=== PATIENT | male | born 1995 | race Caucasian/White ===

== ENCOUNTER 2016-06-22 12:42 | Emergency (ER) | payer BC ==
[~2016-06-22] VITALS: Ht 170.2 cm; Wt 58.5 kg
[~2016-06-22 12:42] MED LIST: CEPH500T PO; NO ROUTINE MEDS
[2016-06-22 12:45] VITALS: Ht 170.2 cm; Wt 58.5 kg
[2016-06-22] MEDS ORDERED: OXYC1TAB13 PO (13:06)
--- NOTE | 2016-06-22 13:07 | NUR ---
RADIOLOGY PT TO RADIOLOGY PER WC
--- NOTE | 2016-06-22 13:12 | NUR ---
RADIOLOGY PT FROM RADIOLOGY PER WC
--- NOTE | 2016-06-22 13:15 | NUR ---
COMFORT ICE PACK GIVEN FOR COMFORT
--- NOTE | 2016-06-22 13:42 | NUR ---
CONSULT ORTHO CONSULTED PER DR MILLER
--- NOTE | 2016-06-22 13:48 | NUR ---
RADIOLOGY RADIOLOGY NOTIFIED OF CT ORDERS
--- NOTE | 2016-06-22 13:50 | NUR ---
RADIOLOGY PT TO RADIOLOGY PER WC FOR CT
--- NOTE | 2016-06-22 13:58 | NUR ---
RADIOLOGY PT FROM RADIOLOGY PER CART
--- NOTE | 2016-06-22 14:06 | ERPDOC ---
Departure Disposition Decision Date: Jun 22, 2016 Disposition Decision Time: 14:45 Disposition: 01 DISCHARGED HOME, SELF-CARE Impression Impression Impression: Primary Impression: Wrist fracture, closed Encounter type: initial encounter Laterality: right Qualified Codes: S62.101A - Fracture of unspecified carpal bone, right wrist, initial encounter for closed fracture Severity: Mild Condition: Improved Seen By: Physician only Referrals: [facility] 1 Day Patient Instructions: Wrist Fracture in Adults (ED) Problems/Meds/Labs Reviewed?: Yes Medications reviewed and manag: Yes Follow up care ordered?: Yes Mental Status: Alert, Oriented Scripts Oxycodone HCl/Acetaminophen (Percocet 5-325 mg Tablet) 5-325 Tablet 1 TAB PO Q4HR Y for PAIN for 3 Days, #18 TAB 0 Refills Prov: CHRISTIANNE MILLER DO 06/22/16 HPI - Upper Extremity General Chief Complaint: Upper Extremity Injury Stated Complaint: R WRIST INJ Time Seen by MD: 12:43 Source: patient Exam Limitations: no limitations HPI - Upper Extremity Initial Comments 20-year-old male presents to the emergency department with the chief complaint of a right wrist injury. Patient hit his right wrist against a wooden lawn- chair earlier today prior to arrival to the emergency department. Patient notes a moderate dull aching sensation in his right wrist diffusely. He notes that the pain improves with a Percocet tablet that he took prior to arrival to the emergency department. Pain increases with movement and direct palpation of the affected area. No radiation of pain. Patient was at home when his symptoms began. Symptoms have been persistent in nature since onset. He denies any other complaints or associated symptoms. No other injuries. Patient was at home when the incident occurred. Occurred At: home Onset/Timing: Rapid Allergies: Coded Allergies: No Known Allergies (Unverified , 06/22/16) Past History Past Medical History Pt denies signifigant PMH Surgical History Denies Surgeries Family History Family History: Negative Family PMH: FOUND: other Social History Smoking Status: Never smoker Substance Use Type: does not use Alcohol Intake: none Review of Systems Constitutional Constitutional: DENIES: chills, fever Eyes General: DENIES: erythema, exudate Lids/Accessories: DENIES: erythema, swelling Vision: DENIES: acuity, blurring ENMT Ears: DENIES: drainage, erythema Hearing: DENIES: hearing loss Balance: DENIES: ataxia, falling to one side Sinuses: DENIES: congestion, pain Nose: DENIES: nosebleeds, pain Mouth/Throat: DENIES: painful swallowing, sore throat Teeth: DENIES: pain Jaw: DENIES: pain Cardiovascular Cardiac: DENIES: chest pain, dyspnea on exertion Rhythm/Rate: DENIES: irregular beat, palpitations Vascular: DENIES: pedal edema, unilateral swelling Pulmonary Respiratory: DENIES: cough, dyspnea, sputum GI Upper Abdomen: DENIES: nausea, pain, vomiting Lower Abdomen: DENIES: diarrhea, pain General: DENIES: dysuria, frequency Musculoskeletal General: joint pain, tenderness Integumentary Skin: DENIES: itching, rash Neurological General: DENIES: headache, numbness, weakness Psychiatric Psychiatric: DENIES: emotional instability, suicidal ideation/attempt Endocrine Endocrine: DENIES: polydipsia, polyphagia Hematologic/Lymphatic Hematologic/Lymphatic: DENIES: frequent nosebleeds, lymphadenopathy Allergic/Immunological Allergic/Immunoligical: DENIES: allergic reactions, hives Physical Exam General General Nourishment: well nourished, well developed, appears stated age, no acute distress, adult General Body Habitus: well groomed Vitals and Pain First Documented Vital Signs Date Time Temp Pulse Resp B/P Pulse Ox O2 Delivery O2 Flow Rate FiO2 06/22/16 12:45 98.0 84 16 135/74 98 Room Air Weight: Kilograms: 58.500 Height (feet): 5 Height (inches): 7.00 Triage Pain Scale: RN VS reviewed by Provider: Yes Normal Exams: Head: Normocephalic w/o trauma Eyes: Pupils are PERRLA w/ EOMI, No scleral icterus, irritation, or foreign bodies noted ENMT: No facial trauma, nasal exudates, pharyngeal erythema, or exudates are noted Dental: No fractured, loose, or missing teeth noted Neck: Full range of motion, without adenopathy, JVD, bruits or thyromegaly Chest/Resp: Clear all crowe, with good airflow, and symmetry bilaterally CV: Regular rate and rhythm, without murmur or gallop, Pulses 2+ all extremities, capillary refill, <2 seconds all ext., no pedal edema noted Abdomen: Bowel sounds positive, soft, non-tender, non-distended, no hepatosplenomegaly, masses or bruits noted Lymphatic: No lymphadenopathy, or lymphedema noted Musculoskeletal: or deformity noted, good range of motion, all extremities Integumentary: No rashes, hives, or bruising noted, hair and nails, without abnormality Neurologic: Patient is alert, and oriented, cranial nerves, motor/sensory/ cerebellar, exams w/o gross deficits, to observation Psychiatric: Patient exhibits, appropriate attention, emotion and affect Musculoskeletal (brief) Comments R wrist - full range of motion. Skin is intact. Pulses intact. Sensation intact. Capillary refill less than 2. No erythema or edema. Diffusely tender to palpation. No anatomic snuffbox tenderness. No other tenderness in the right upper extremity. All other extremities are unremarkable. Differential Diagnoses Considering: Contusion, Fracture, Sprain, Strain Procedures Splinting Procedure Splint : Site: RUE Pre-placement NV: FOUND: cap refill < 3 sec, good movement, good sensation Hand-Made Type: orthoglass Splint: sugar-tong Post-placement NV: FOUND: cap refill < 3 sec, good movement, good sensation Applied by: / Progress Results/Orders Orders Procedure Category Date Status Time Wrist Right 3-4 Views RAD 06/22/16 Taken 13:00 Ct Upper Extremity Rt CT 06/22/16 Taken W/O Cont 13:44 Sling MADELYN 06/22/16 In Process 14:44 Progress Progress Patient declined offered analgesic pain medication in the emergency department upon arrival. Patient was placed in a sugar tong splint with good alignment by myself. Patient was distal neurovascular intact post-application of splint/ sling. Patient is discussed with orthopedics on-call Dr. Nicole and will follow-up with him in the office tomorrow. Patient is provided with a prescription for Percocet. Patient is discharged home in improved condition. Patient is in agreement with the current plan of management. Patient is to return to the emergency department if his condition worsens or changes in any manner. CHRISTIANNE MILLER DO Jun 22, 2016 14:05
--- NOTE | 2016-06-22 14:40 | NUR ---
SPLINT SPLINT APPLIED PER DR MILLER
[2016-06-22] MEDS ORDERED: OXYC1TAB8 PO (14:46)
--- NOTE | 2016-06-22 14:50 | NUR ---
SLING SLING TO RIGHT ARM PLACED
[2016-06-22 14:53] VITALS: BP 137/71; PULSE 78; RESP 14; TEMP 98; O2SAT 99
--- NOTE | 2016-06-22 14:53 | NUR ---
DISMISSAL DISMISSAL INSTRUCTIONS WITH RX X1. NO FURTHER QUESTIONS AT THIS TIME. PT LEFT DEPARTMENT [facility] IN NO DISTRESS
--- NOTE | 2016-06-22 22:27 | DI ---
Indication: ITS.REASON: wrist fracture PROCEDURE: CT UPPER EXTREMITY RT W/O CONT: Encounter: Initial Comparison: Radiographs from the same date Technique: Axial noncontrast CT imaging of the right wrist was performed with coronal and sagittal two-dimensional reformats and three-dimensional surface shaded volume rendered imaging. Automated Exposure Control and Iterative Reconstruction dose reducing techniques were utilized. Findings: The distal radial and ulnar fractures are confirmed here with a Salter-Morley type IV fracture through the metaphysis, epiphysis and growth plate extending into the radiocarpal joint. Minimally displaced ulnar styloid fracture seen. No additional acute fracture. No dislocation. Impression: Closed post traumatic Salter-Morley type IV fracture of the distal radius and ulnar styloid fracture. There is a preliminary report by [facility]. .
--- NOTE | 2016-06-22 22:28 | DI ---
Indication: ITS.REASON: PAIN AND SWELLING PROCEDURE: WRIST RIGHT 3-4 VIEWS: Encounter: Initial Comparison: Radiographs dated August 21, [address] dated June 22, 2016 Findings: Buckle type nondisplaced fracture of the distal radial metaphysis. This extends through the growth plate and epiphysis into the radiocarpal joint which is better seen on the CT. This is a Salter-Morley type IV fracture. There is also a nondisplaced ulnar styloid fracture. No additional acute fracture or dislocation seen. Impression: Closed posttraumatic distal radial and ulnar fractures. .
== END 2016-06-22 14:53 | disposition home or self-care (01) ==
LOC: ED 12:42
DX: S59.241A Salter-Harris Type IV physeal fracture of lower end of radius, right arm, initial encounter for closed fracture (principal); S52.614A Nondisplaced fracture of right ulna styloid process, initial encounter for closed fracture; W22.03XA Walked into furniture, initial encounter; Y93.9 Activity, unspecified; Y92.009 Unspecified place in unspecified non-institutional (private) residence as the place of occurrence of the external cause; Y99.8 Other external cause status